=== PATIENT | female | born 1965 | race Asian ===

== ENCOUNTER 2018-06-08 08:57 | Inpatient (IN) | payer BC ==
[~2018-06-08] VITALS: Ht 177.8 cm; Wt 145.7 kg
[2018-06-08 10:54] LABS: PLATELET COUNT 320 K/uL (152-353)
[2018-06-08 11:16] LABS: POTASSIUM 3.9 mmol/L (3.6-5.2)
[2018-06-08 11:38] VITALS: BP 146/99; TEMP 99.2; Ht 177.8 cm; Wt 145.7 kg
[2018-06-08] MEDS ORDERED: OMEPRAZOLE DR20 MG PO (13:44)
[2018-06-08] MEDS ORDERED: ALTOPREV20 MG PO (13:46)
[2018-06-08] MEDS ORDERED: MOBIC15 MG PO (13:49)
[2018-06-08] MEDS ORDERED: RANITIDINE HYD300 MG PO (13:53)
[2018-06-08] MEDS ORDERED: MONTELUKAST SOD10 MG PO (13:56)
[2018-06-08] MEDS ORDERED: PROAIR HFA108 MCG/AC INH (13:56)
[2018-06-08] MEDS ORDERED: FURO20TA67 PO (13:57)
[2018-06-08] MEDS ORDERED: CITALOPRAM20 M1 PO (13:57)
[2018-06-08] MEDS ORDERED: LISI20TA31 PO (13:58)
[2018-06-08] MEDS ORDERED: METFORMIN HYDR850 MG PO (13:59)
[2018-06-08] MEDS ORDERED: ALPR0.5T24 PO (13:59)
[2018-06-08] MEDS ORDERED: AMLODIPINE BESYLATE PO (14:00)
[2018-06-08] MEDS ORDERED: TROKENDI XR100 MG PO (14:00)
[2018-06-08] MEDS ORDERED: PROM25TA52 PO (14:01)
[2018-06-08] MEDS ORDERED: ALBUTEROL0.083 % INH (14:02)
[2018-06-08] MEDS ORDERED: MECLIZINE25 MG PO (14:02)
[2018-06-08] MEDS ORDERED: HYDROCODONE BIT1 TA2 PO (14:03)
[2018-06-08] MEDS ORDERED: CYCL10TA35 PO (14:03)
[2018-06-08 16:25] VITALS: BP 125/76; TEMP 99.1
[2018-06-08 20:00] VITALS: BP 140/76; TEMP 99.3
[2018-06-09 00:10] VITALS: BP 106/70; TEMP 98.7
[2018-06-09 04:00] VITALS: BP 123/80; TEMP 99.5
[2018-06-09 06:04] LABS: POTASSIUM 4.4 mmol/L (3.6-5.2)
[2018-06-09 06:16] LABS: PLATELET COUNT 324 K/uL (152-353)
[2018-06-09 08:00] VITALS: BP 122/76; TEMP 99
[2018-06-09 12:00] VITALS: BP 119/76; TEMP 99.3
[2018-06-09 16:01] VITALS: BP 109/64; TEMP 98.5
[2018-06-09 20:06] VITALS: BP 111/64; TEMP 98.7
[2018-06-10] VITALS: BP 110/50; TEMP 98.3
[2018-06-10 04:01] VITALS: BP 112/69; TEMP 98.1
[2018-06-10 08:00] VITALS: BP 126/79; TEMP 99.1
[2018-06-10 09:18] LABS: PLATELET COUNT 373 K/uL (152-353)
[2018-06-10 09:34] LABS: POTASSIUM 4.1 mmol/L (3.6-5.2)
[2018-06-10 12:00] VITALS: BP 123/76; TEMP 98.4
== END 2018-06-10 12:00 | disposition home or self-care (01) | DRG 202 ==
LOC: MED/SURG 08:57
PROVIDERS: ADMIT Family Medicine
DX: J45.901 Unspecified asthma with (acute) exacerbation (principal); J18.8 Other pneumonia, unspecified organism; E86.0 Dehydration; R07.89 Other chest pain; G62.89 Other specified polyneuropathies
CPT/HCPCS: 80053; 82948; 83036; 83735; 84100; 85027; 87040; 87070; 87205; 93005; 94640; 94664; 94668; 94760; 96365; 96367; 96375; J0456; J0696; J1100; J2930

== ENCOUNTER 2019-12-05 17:01 | Emergency (ER) | payer BC ==
[~2019-12-05] VITALS: Ht 177.8 cm; Wt 140.6 kg
[~2019-12-05 17:01] MED LIST: ALBUTEROL0.083 % INH; ALPR0.5T24 PO; ALTOPREV20 MG PO; AMLODIPINE BESYLATE PO; CITALOPRAM20 M1 PO; CYCL10TA35 PO; FURO20TA67 PO; HYDROCODONE BIT1 TA2 PO; LISI20TA31 PO; MECLIZINE25 MG PO; METFORMIN HYDR850 MG PO; MOBIC15 MG PO; MONTELUKAST SOD10 MG PO; OMEPRAZOLE DR20 MG PO; PROAIR HFA108 MCG/AC INH; PROM25TA52 PO; RANITIDINE HYD300 MG PO; TROKENDI XR100 MG PO
[2019-12-05 18:53] LABS: PLATELET COUNT 165 K/uL (152-353)
[2019-12-05 19:05] LABS: POTASSIUM 3.6 mmol/L (3.6-5.2)
[2019-12-05 20:52] VITALS: BP 118/74; TEMP 100.3
== END 2019-12-05 20:52 | disposition home or self-care (01) ==
LOC: ED 17:01
PROVIDERS: Family Medicine
DX: J06.9 Acute upper respiratory infection, unspecified (principal); R50.9 Fever, unspecified; R05 Cough
CPT/HCPCS: 36415; 80053; 82728; 83605; 85027; 85379; 85610; 87040; 87502; 87651; 99283

== ENCOUNTER 2020-07-31 19:54 | Outpatient (CLI) | payer BC | END 2020-07-31 21:19 | disposition home or self-care (01) | LOC: RAD 19:54 | PROVIDERS: ATTEND Nurse Practitioner Family | DX: R06.02 Shortness of breath (principal); Z87.898 Personal history of other specified conditions ==

== ENCOUNTER 2020-12-10 12:34 | Outpatient (CLI) | payer BC ==
[~2020-12-10 12:34] MED LIST changes: +TRAMADOL HYDROC50 MG PO
== END 2020-12-10 22:29 | disposition home or self-care (01) ==
LOC: MAMMO 12:34
PROVIDERS: ATTEND Nurse Practitioner Family
DX: M25.562 Pain in left knee (principal); D46.1 Refractory anemia with ring sideroblasts; M17.12 Unilateral primary osteoarthritis, left knee; Z12.31 Encounter for screening mammogram for malignant neoplasm of breast

== ENCOUNTER 2020-12-11 07:31 | Outpatient (CLI) | payer BC ==
[~2020-12-11] VITALS: Ht 177.8 cm; Wt 157.4 kg
== END 2020-12-11 21:22 | disposition home or self-care (01) ==
LOC: DIABINF 07:31
PROVIDERS: ATTEND Nurse Practitioner
DX: E11.65 Type 2 diabetes mellitus with hyperglycemia (principal); E11.40 Type 2 diabetes mellitus with diabetic neuropathy, unspecified; M79.7 Fibromyalgia; E66.01 Morbid (severe) obesity due to excess calories; Z68.42 Body mass index [BMI] 45.0-49.9, adult; E78.2 Mixed hyperlipidemia; G47.09 Other insomnia
CPT/HCPCS: 82948; 96365; 96366; 96521; J1815; J1817

== ENCOUNTER 2020-12-25 07:55 | Outpatient (CLI) | payer BC ==
[~2020-12-25] VITALS: Ht 177.8 cm; Wt 157.4 kg
== END 2020-12-25 23:25 | disposition home or self-care (01) ==
LOC: DIABINF 07:55
PROVIDERS: ATTEND Nurse Practitioner
DX: E11.65 Type 2 diabetes mellitus with hyperglycemia (principal); E11.40 Type 2 diabetes mellitus with diabetic neuropathy, unspecified; I10 Essential (primary) hypertension; E78.2 Mixed hyperlipidemia; M79.7 Fibromyalgia; E66.01 Morbid (severe) obesity due to excess calories; Z68.42 Body mass index [BMI] 45.0-49.9, adult; G47.09 Other insomnia; M17.12 Unilateral primary osteoarthritis, left knee
CPT/HCPCS: 82948; 96365; 96366; 96521; J1815; J1817

== ENCOUNTER 2021-01-01 07:38 | Outpatient (CLI) | payer BC ==
[~2021-01-01] VITALS: Ht 177.8 cm; Wt 157.4 kg
== END 2021-01-01 12:00 | disposition home or self-care (01) ==
LOC: DIABINF 07:38
PROVIDERS: ATTEND Nurse Practitioner
DX: E11.65 Type 2 diabetes mellitus with hyperglycemia (principal); E11.40 Type 2 diabetes mellitus with diabetic neuropathy, unspecified; I10 Essential (primary) hypertension; E78.2 Mixed hyperlipidemia; M79.7 Fibromyalgia; E66.01 Morbid (severe) obesity due to excess calories; Z68.42 Body mass index [BMI] 45.0-49.9, adult; G47.09 Other insomnia; M17.12 Unilateral primary osteoarthritis, left knee
CPT/HCPCS: 82948; 96365; 96366; 96521; J1815; J1817

== ENCOUNTER 2021-01-15 07:21 | Outpatient (CLI) | payer BC ==
[~2021-01-15] VITALS: Ht 177.8 cm; Wt 157.4 kg
== END 2021-01-15 21:05 | disposition home or self-care (01) ==
LOC: DIABINF 07:21
PROVIDERS: ATTEND Nurse Practitioner
DX: E11.65 Type 2 diabetes mellitus with hyperglycemia (principal); E11.40 Type 2 diabetes mellitus with diabetic neuropathy, unspecified; E66.01 Morbid (severe) obesity due to excess calories; Z68.42 Body mass index [BMI] 45.0-49.9, adult; I10 Essential (primary) hypertension; E78.2 Mixed hyperlipidemia; G47.09 Other insomnia; M17.12 Unilateral primary osteoarthritis, left knee; M54.5 Low back pain
CPT/HCPCS: 82948; 96365; 96366; 96521; J1815; J1817

== ENCOUNTER 2021-01-29 07:24 | Outpatient (CLI) | payer BC ==
[~2021-01-29] VITALS: Ht 177.8 cm; Wt 157.4 kg
== END 2021-01-29 23:00 | disposition home or self-care (01) ==
LOC: DIABINF 07:24
PROVIDERS: ATTEND Nurse Practitioner
DX: E11.65 Type 2 diabetes mellitus with hyperglycemia (principal); E11.40 Type 2 diabetes mellitus with diabetic neuropathy, unspecified; E66.01 Morbid (severe) obesity due to excess calories; Z68.42 Body mass index [BMI] 45.0-49.9, adult; I10 Essential (primary) hypertension; E78.2 Mixed hyperlipidemia; G47.09 Other insomnia; M17.12 Unilateral primary osteoarthritis, left knee; M54.5 Low back pain
CPT/HCPCS: 82948; 96365; 96366; 96521; J1815; J1817

== ENCOUNTER 2022-04-02 13:11 | Emergency (ER) | payer OTHER ==
[~2022-04-02] VITALS: Ht 177.8 cm; Wt 157.4 kg
[2022-04-02 13:11] VITALS: BP 125/71; TEMP 98
[2022-04-02 13:37] LABS: PLATELET COUNT 282 K/uL (152-353)
[2022-04-02 13:47] LABS: POTASSIUM 3.9 mmol/L (3.6-5.2)
[2022-04-02 13:59] LABS: PARTIAL THROMBOPLASTIN TIME 24.4 SECONDS (24.5-33.6)
== END 2022-04-02 16:30 | disposition home or self-care (01) ==
LOC: ED 13:11
PROVIDERS: Emergency Medicine
DX: R07.89 Other chest pain (principal)
CPT/HCPCS: 80053; 84484; 85027; 85610; 85730; 93005; 99283; J1885; J2405

== ENCOUNTER 2022-06-30 17:44 | Emergency (ER) | payer OTHER ==
[~2022-06-30] VITALS: Ht 177.8 cm; Wt 157.4 kg
[2022-06-30 18:26] LABS: PLATELET COUNT 262 K/uL (152-353)
[2022-06-30 18:36] LABS: POTASSIUM 3.7 mmol/L (3.6-5.2)
[2022-06-30 18:51] LABS: PARTIAL THROMBOPLASTIN TIME 21.6 SECONDS (24.5-33.6)
[2022-06-30 22:30] VITALS: BP 130/91; TEMP 98
== END 2022-06-30 22:35 | disposition home or self-care (01) ==
LOC: ED 17:44
PROVIDERS: Emergency Medicine
DX: R06.02 Shortness of breath (principal); G47.39 Other sleep apnea; Z20.822 Contact with and (suspected) exposure to COVID-19
CPT/HCPCS: 80053; 83880; 84443; 84484; 85027; 85379; 85610; 85730; 87635; 93005; 99284; Q9963; U0003

== ENCOUNTER 2023-01-22 14:00 | Outpatient (CLI) | payer OTHER | END 2023-01-22 19:03 | disposition home or self-care (01) | LOC: MAMMO 14:00 | PROVIDERS: ATTEND Nurse Practitioner Family | DX: Z12.31 Encounter for screening mammogram for malignant neoplasm of breast (principal) ==

== ENCOUNTER 2023-02-15 14:10 | Outpatient (CLI) | payer OTHER | END 2023-02-15 21:27 | disposition home or self-care (01) | LOC: MRI 14:10 | PROVIDERS: ATTEND Orthopaedic Surgery | DX: M25.552 Pain in left hip (principal); M25.551 Pain in right hip; M16.0 Bilateral primary osteoarthritis of hip; M54.59 Other low back pain; M48.062 Spinal stenosis, lumbar region with neurogenic claudication; M54.16 Radiculopathy, lumbar region; M51.35 Other intervertebral disc degeneration, thoracolumbar region; M51.36 Other intervertebral disc degeneration, lumbar region; M51.37 Other intervertebral disc degeneration, lumbosacral region; M43.06 Spondylolysis, lumbar region ==